=== PATIENT | female | born 1960 | race Two or more races ===

== ENCOUNTER 2024-11-26 18:04 | Inpatient (IN) | payer OTHER ==
[~2024-11-26] VITALS: Ht 167.6 cm; Wt 88.7 kg
--- NOTE | 2024-11-26 19:24 | ED.PDOC ---
HPI Comments HPI: 64y F who presents to the ED for chief complaint of palpitations. - pt states after waking up this afternoon at approx 1 PM , she felt heart palpitations but states they went away. 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 Patient states she checked her blood pressure which was normotensive - pt states she continued to have symptoms and drove to local urgent care for evaluation -pt states at [facility], she was referred to come to ED and drove herself to ED at - pt in the ED, noted BP of 84/57 and then 76/51 on repeat with all other vitals in normal range - pt otherwise denies any current shortness of breath, chest pain or any associated symptoms - pt in the ED, states she has history of HTN and HLD with pre DM but states she takes no medications and states she uses homeopathic treatments - pt was started on IV fluids and roomed - pt otherwise is alert and oriented x 4 and no noted changes in gait, vision, or speech are noted Past Medical history: pre DM, HTN, HLD, Past Surgical history: hysterectomy, fibroids Medications: none Allergies: nkda Social History: denies ETOH, denies tobacco use, denies drug use HPI: Poor Historian. REVIEW OF SYSTEMS: CONSTITUTIONAL: Denies acute: fever, diaphoresis, chills, HEAD: Denies acute: headache, photophobia Eyes: Denies acute: Double vision, vision loss, eye pain, eye discharge. EARS: Denies acute: tinnitus, hearing loss, ear discharge, ear pain, THROAT: Denies acute: sore throat, swelling, difficulty swallowing , pain with swallowing, change in voice. NECK: Denies acute: neck pain, neck swelling, stiff neck. HEART: Denies acute : chest pain LUNGS: Denies acute: SOB, wheezing, cough, hemoptysis ABDOMEN: Denies acute: abdominal pain, Nausea, Vomiting, diarrhea, melena , hematemesis, hematochezia SKIN: Denies acute: rash, redness, lesions, itchiness. EXTREMITIES: Denies acute: calf pain, numbness, tingling, weakness, denies pain in extremity. Denies acute: Low back pain. Neuro: Denies acute: focal neurological deficit, motor or sensory focal neurological deficit, tremors, seizure like activity, confusion, change in mental status, loss of bowel or bladder function, cauda equina like symptoms. : Denies acute: dysuria, hematuria, flank pain, increase in urinary frequency. PSYCH: Denies acute: hallucination, suicidal ideation, homicidal ideation. FEMALE: Denies acute: abnormal vaginal bleeding, foul odor, unusual discharge. PHYSICAL EXAM: General: ---mild to moderate-----acute distress, awake and alert. Head: normocephalic, atraumatic. Neck: supple, trachea is midline, no swelling. Throat: Normal phonation. Eyes:, no erythema, no purulent discharge, no proptosis, no icterus. Heart: regular tachycardia,, no significant murmur appreciated. Lungs: no apparent respiratory distress, Able to speak in full sentences. No wheezing, no rhonchi, no crackles. No stridors Clear to auscultation bilaterally. Abdomen: non tender to palpation, non distended, soft, no guarding, no rebound, + bowel sounds. Neuro: Awake, Alert, oriented to name, self, situation, follows commands GCS=15. Speech is normal. Skin: no petechia, no purpura, no cyanosis, non-pale, not jaundice. Lower extremities: --no - Pitting edema no deformity, no focal swelling, no calf TTP. Makes eye contact. moves all four extremities. Face: no apparent facial droop. Ambulating in the ED independently. No nuchal rigidity, Kernig's sign, Brudzinski's sign, no meningeal signs. ED COURSE: Chief Complaint: General Weakness Time Seen by MD: 19:54 Reviewed Notes: Nurses Notes, Medications, Allergies Allergies: Coded Allergies: NO KNOWN ALLERGIES (Unverified , 11/26/24) Information Source: Patient Mode of Arrival: Ambulatory Was a procedure done? Was a procedure done?: No CP Differential Dx Differential Diagnosis: N/A Differential Diagnosis: Other (Ddx include but not limitied to gastritis, musculoskeletal pain, radiculopathy, atypical chest pain, dissection, aneurysm, ACS, unstable angina, hiatal hernia, GERD, anxiety, costochondritis, PE, pneumothroax, neoplasm, cardiac ischemia, drug abuse, anemia. As far as generalized weakness, insert generalized weakness.) X-Ray, Labs, Meds, VS Vital Signs Date Time Temp Pulse Resp B/P (MAP) Pulse Ox O2 Delivery O2 Flow Rate FiO2 11/26/24 20:17 67 11/26/24 20:07 78 18 100 Room Air* 0 21 11/26/24 20:06 98.2 78 19 111/77 (88) 100 98.2 11/26/24 20:00 91 11/26/24 18:51 136 11/26/24 18:05 98.3 129 16 84/57 (66) 97 98.3 Lab Test 11/26/24 21:14 11/26/24 21:12 11/26/24 19:45 Range/Units Urine Color Light-yellow Yellow Urine Clarity Turbid H Clear Urine pH 7.5 5.0-9.0 Urine Specific [place] 1.017 1.001-1.035 Urine Protein Negative Negative Urine Ketones Negative Negative Urine Blood Negative Negative /uL Urine Nitrite Negative Negative Urine Bilirubin Negative Negative Urine Urobilinogen Normal Negative mg/dL Urine Leukocyte Esterase 1+ Negative /uL Urine RBC 1 0 - 4 /hpf Urine Microscopic WBC 4 0-5 /HPF Urine Squamous Epithelial Cells Few <5 /hpf Urine Amorphous Crystals Few None Seen /hpf Urine Bacteria Few H None Seen /hpf Urine Glucose Normal Normal mg/dL Urine Opiates Screen Neg NEGATIVE Urine Fentanyl Screen Neg NEGATIVE Urine Barbiturates Screen Neg NEGATIVE Urine Phencyclidine Screen Neg NEGATIVE Urine Amphetamines Screen Neg NEGATIVE Urine Benzodiazepines Screen Neg NEGATIVE Urine Cocaine Screen Neg NEGATIVE Urine Cannabinoids Screen Neg NEGATIVE Troponin I High Sensitivity 444 *H 227 *H </=34 ng/L White Blood Count 6.2 4.4-10.8 10^3/uL Red Blood Count 3.85 L 4.0-5.20 10^6/uL Hemoglobin 11.8 L 12.2-16.2 g/dL Hematocrit 36.4 36.0-46.0 % Mean Corpuscular Volume 94.7 80.0-100.0 fL Mean Corpuscular Hemoglobin 30.8 28.0-32.0 pg Mean Corpuscular Hemoglobin Concent 32.5 32.0-36.0 g/dL Red Cell Distribution Width 15.4 H 11.8-14.3 % Platelet Count 158 140-450 10^3/uL Mean Platelet Volume 10.2 6.9-10.8 fL Neutrophils (%) (Auto) 58.3 37.0-80.0 % Lymphocytes (%) (Auto) 28.8 10.0-50.0 % Monocytes (%) (Auto) 10.5 0.0-12.0 % Eosinophils (%) (Auto) 2.0 0.0-7.0 % Basophils (%) (Auto) 0.4 0.0-2.0 % Neutrophils # (Auto) 3.6 1.6-8.6 10 ^3/uL Lymphocytes # (Auto) 1.8 0.4-5.4 10 ^3/uL Monocytes # (Auto) 0.7 0-1.3 10 ^3/uL Eosinophils # (Auto) 0.1 0-0.8 10 ^3/uL Basophils # (Auto) 0 0-0.2 10 ^3/uL Nucleated Red Blood Cells 0.0 % Sodium Level 145 136-145 mmol/L Potassium Level 4.0 3.5-5.1 mmol/L Chloride Level 110 H 98-107 mmol/L Carbon Dioxide Level 29 20-31 mmol/L Anion Gap 6 5-15 Blood Urea Nitrogen 15 9-23 mg/dL Creatinine 0.79 0.550-1.02 mg/dL Glomerular Filtration Rate Calc 84 >90 mL/min BUN/Creatinine Ratio 19.0 10.0-20.0 Serum Glucose 106 74-106 mg/dL Calcium Level 9.2 8.7-10.4 mg/dL Magnesium Level 2.2 1.6-2.6 mg/dL Total Bilirubin 0.6 0.2-1.0 mg/dL Aspartate Amino Transferase (AST) 26 13-40 U/L Alanine Aminotransferase (ALT) 57 H 7-40 U/L Alkaline Phosphatase 58 46-116 U/L B-Type Natriuretic Peptide 98.75 0-100 pg/mL Total Protein 5.8 5.7-8.2 g/dL Albumin 3.5 3.2-4.8 g/dL Thyroid Stimulating Hormone (TSH) 0.97 0.55-4.78 uIU/mL Microbiology Date/Time Source Procedure Growth Status 11/26/24 21:14 Urine - Midstream Clean Catch Urine Culture - Preliminary Resulted [facility] [id number] [facility] [id number] Ph: [phone] DIAGNOSTIC IMAGING Diagnostic Imaging Report : [id number] Signed PATIENT: AMANDA BETANCOURTACCT: [id number] UNIT: [id number] : 1960 LOC: ER ROOM / BED: / AGE / SEX: 64 / F ADM STATUS: REG ER SERVICE 22 ORDERING PHYSICIAN: FLOYD GARCIA DO PROCEDURE(s): CXRP - CHEST PORTABLE REASON: weak, hypotensive, palpitation ORDER NUMBER(s): [id number], ACCESSION NUMBER(s): [id number] CHEST RADIOGRAPH Indication: weak, hypotensive, palpitation Technique: Single frontal view of the chest was obtained Comparison: None FINDINGS: Lines and Tubes: None Lungs: No focal consolidation. Pleura: No effusion. No pneumothorax. Cardiomediastinal contours: Unremarkable Bones: No acute osseous abnormality. IMPRESSION: 1. No acute cardiopulmonary disease. HS:Y ATED BY: JOHNY FONG Jr., DO DICTATED DATE/TIME: 11/26/242001 SIGNED BY: JOHNY FONG Jr., SIGNED DATE/TIME: 11/26/242001 CC: Time of 1ST Reevaluation: 22:10 (The case was discussed with the admitting team (HPI, physical exam, labs and diagnostic tests that were available at the time of disposition, ED course, treatment plan) on the phone. They agreed to admit the patient to their service and assume care of this patient from this point forward. --- Sarah. Still waiting to hear back from cardiology) Reevaluation 1ST: Improved Time of 2ND Reevaluation: 23:18 (The case was discussed with the cardiology on- call team (HPI, physical exam, labs and diagnostic tests that were available at the time of disposition, ED course, treatment plan) on the phone. They agreed with our management and said that they will follow in consult. Dr. Mei. No further recommendations.) Patient Education/Counseling: Diagnosis, Treatment Family Education/Counseling: No Family Present Comments Patient presented with the above HPI.--generalized weakness/palpitations/chest pain----workup was initiated. patient was found with the above mentioned diagnosis. the following medications were ordered: please refer to order lists of meds and tests obtained by myself Dr. Garcia. Patient ED course and VS have been stabilized. Patient has been reassessed in the ED and remained in a stable condition. Pertinent incidental findings were discussed with the patient and/or family. Patient/family voices understanding and is agreeable with plan. Patient has been observed in the ED adequate length of time to insure improvement/stability. Escalation of care considered: Consideration of escalation to observation or admission Patient met sepsis criteria being tachycardic on presentation. Sepsis protocol and weight based fluid resuscitation was administered. Cardiology was consulted. Empiric antibiotics given. Patient was ADMITTED to the medicine team for further evaluation and treatment of their presentation. All the reports of any imaging studies that were ordered by myself were reviewed by myself. Departure 1 Departure Time of Disposition: 20:09 Impression: Primary Impression: Hypotension Additional Impressions: Tachycardia Generalized weakness NSTEMI (non-ST elevated myocardial infarction) UTI (urinary tract infection) Disposition: ADMITTED INPATIENT Admit to: [facility] Condition: Guarded Discharged With: Self Critical Care Note Critical Care Time?: Yes (55 min-critical care time only) Heart Score Heart Score: Heart Score Response (Comments) Value History Slightly Suspicious 0 EKG Normal 0 Age >65 2 Risk Factors 1 or 2 risk factors 1 Troponin Normal limit 0 Total 3 I personally scribed for FLOYD GARCIA DO ([email or web address]) on 11/26/24 at 19:24. Electronically submitted by Maurice Chan ([employer]). I personally scribed for FLOYD GARCIA DO ([email or web address]) on 11/26/24 at 19:55. Electronically submitted by Maurice Chan ([employer]). I personally scribed for FLOYD GARCIA DO ([email or web address]) on 11/26/24 at 20:14. Electronically submitted by Maurice Chan ([employer]). FLOYD GARCIA DO Nov 26, 2024 19:24
--- NOTE | 2024-11-26 20:04 | DVH ---
CHEST RADIOGRAPH Indication: weak, hypotensive, palpitation Technique: Single frontal view of the chest was obtained Comparison: None FINDINGS: Lines and Tubes: None Lungs: No focal consolidation. Pleura: No effusion. No pneumothorax. Cardiomediastinal contours: Unremarkable Bones: No acute osseous abnormality. IMPRESSION: 1. No acute cardiopulmonary disease. HS:Y
[2024-11-26 20:07] VITALS: PULSE 78; RESP 18; O2SAT 100
[2024-11-26 20:12] LABS: Basophils # (auto) 0 10 ^3/uL (0-0.2); Basophils % (auto) 0.4 % (0.0-2.0); Eosinophils # (auto) 0.1 10 ^3/uL (0-0.8); Hematocrit 36.4 % (36.0-46.0); Hemoglobin 11.8 g/dL (12.2-16.2); Lymphocytes # (auto) 1.8 10 ^3/uL (0.4-5.4); Lymphocytes % (auto) 28.8 % (10.0-50.0); Mean Corpuscular Hemoglobin 30.8 pg (28.0-32.0); Mean Corpuscular Hgb Conc. 32.5 g/dL (32.0-36.0); Mean Corpuscular Volume 94.7 fL (80.0-100.0); Monocytes # (auto) 0.7 10 ^3/uL (0-1.3); Monocytes % (auto) 10.5 % (0.0-12.0); Neutrophils # (auto) 3.6 10 ^3/uL (1.6-8.6); Neutrophils % (auto) 58.3 % (37.0-80.0); Platelet Count (auto) 158 10^3/uL (140-450); Red Blood Cells 3.85 10^6/uL (4.0-5.20); Red Cell Distribution Width 15.4 % (11.8-14.3); White Blood Cell 6.2 10^3/uL (4.4-10.8)
[2024-11-26 20:23] LABS: Albumin 3.5 g/dL (3.2-4.8); Alkaline Phosphatase 58 U/L (46-116); Anion Gap 6 (5-15); Aspartate Aminotransferase 26 U/L (13-40); Blood Urea Nitrogen 15 mg/dL (9-23); Calcium 9.2 mg/dL (8.7-10.4); Carbon Dioxide 29 mmol/L (20-31); Glucose 106 mg/dL (74-106); Magnesium 2.2 mg/dL (1.6-2.6); Total Protein 5.8 g/dL (5.7-8.2)
[2024-11-26 20:24] LABS: Bilirubin, Total 0.6 mg/dL (0.2-1.0)
[2024-11-26 20:30] LABS: Alanine Aminotransferase 57 U/L (7-40); Chloride 110 mmol/L (98-107); Sodium 145 mmol/L (136-145)
[2024-11-26] MEDS: ASPirin-EC 325mg tab PO ONE (20:55)
[2024-11-26] MEDS: SODIUM CHLORIDE 0.9% 1,000 ML IV ONE (21:02)
[2024-11-26 21:36] LABS: Urine Amorphous Crystal FEW /hpf (None Seen); Urine Bacteria FEW /hpf (None Seen); Urine Blood Negative /uL (Negative); Urine Clarity Turbid (Clear); Urine Color Light-Yellow (Yellow); Urine Protein, UAD Negative (Negative); Urine Specific Gravity 1.017 (1.001-1.035); Urine Squamous Epithelial Cell FEW /hpf (<5); Urine Urobilinogen Normal (Negative); Urine WBC 4 /HPF (0-5); Urine pH 7.5 (5.0-9.0)
[2024-11-26] MEDS: SODIUM CHLORIDE 0.9% 1,000 ML IV SCH (22:15)
[2024-11-26] MEDS: cefTRIAXone 1GM/50ML D5W 50 ML IV ONE (22:15)
[2024-11-26] MEDS ORDERED: MORPHINE SULFATE INJ 2 MG/ml SYRG IV PRN ×2 (22:15)
[2024-11-26] MEDS ORDERED: ONDANSETRON HCL 4 MG/2 ML VIAL IV PRN (22:15)
[2024-11-26] MEDS ORDERED: NITROGLYCERIN 0.4 MG SL TAB SL PRN (22:15)
[2024-11-26] MEDS ORDERED: ACETAMINOPHEN 325 MG TAB PO PRN ×2 (22:15)
[2024-11-26] MEDS ORDERED: HYDROcodone-ACET 5/325MG TAB PO PRN (22:15)
[2024-11-26] MEDS: NOREPINEPHRINE 8 MG/250ML KIT 250 ML IV SCH (22:46)
--- NOTE | 2024-11-26 23:06 | DVHINCON2 ---
Date of service: Nov 26, 2024 Referring Physician Jamel Smith MD History of Present Illness A 64-year-old woman with past medical history of prediabetes, hypertension and hyperlipidemia who presents to the ED today with complaint of palpitations, dizziness, weakness and low BP. Pt reports after waking up this afternoon at approximately 1 PM , she felt heart palpitations which resolved. 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 Patient checked her blood pressure and it was normal. She was seen at and was referred to the ED and patient drove here. In the ED, BP was 84/57 and then 76/51 on repeat, with all other vitals in normal range. She otherwise denies shortness of breath, chest pain or any other associated symptoms. Patient was admitted for further care and pulmonary consultation is requested for evaluation and management due to these findings. Review of Systems: 14-point review of systems negative unless otherwise noted above. Past Medical History: Prediabetes, hypertension and hyperlipidemia Past Surgical History: Hysterectomy, fibroids Medications: Patient states she takes no medications and uses homeopathic treatments. Allergies: No known drug allergies. Family History: No family history of premature CAD. No family history of lung disorders. Social History: Nonsmoker. No alcohol or illicit drug use. Allergies: Coded Allergies: NO KNOWN ALLERGIES (Unverified , 11/26/24) Home Meds Active Scripts Carvedilol (Carvedilol) 3.125 Mg Tab, 1 TAB PO BID, #60 TAB 3 Refills Prov:ROZ SMITHP 11/29/24 Nifedipine (Nifedipine Er) 30 Mg Tab, 30 MG PO DAILY for 30 Days, #30 TAB Prov:ROZ SMITHP 11/29/24 Losartan Potassium (Losartan Potassium) 50 Mg Tab, 50 MG PO DAILY for 30 Days, #30 TAB Prov:ROZ SMITHP 11/29/24 Atorvastatin Calcium (ATORVASTATIN CALCIUM) 20 Mg Tab, 10 MG PO HS for 30 Days, #15 TAB Prov:ROZ SMITHP 11/29/24 Aspirin (Aspirin Low Dose) 81 Mg Tab, 81 MG PO DAILY for 30 Days, #30 TAB Prov:ROZ SMITHP 11/29/24 Current Medications Current Medications Medications (Trade) Dose Ordered Sig/Terrance Route PRN Reason Start Time Stop Time Status Last Admin Heparin Sodium/ Dextrose 250 ml @ 9.936 mls/ hr Q24H IV 11/26/24 22:15 UNV Sodium Chloride 1,000 ml @ 120 mls/hr Q8H20M IV 11/26/24 22:15 Acetaminophen (Tylenol Tablet) 325 mg Q4HP PRN PO MILD PAIN (1-3 PAIN SCALE) 11/26/24 22:15 11/26/24 22:36 DC Acetaminophen/ Hydrocodone Bitart ([place] 5/325MG Tab) 1 tab Q4HP PRN PO MODERATE PAIN (4-6 PAIN SCALE) 11/26/24 22:15 Ondansetron HCl (Zofran) 4 mg Q4HP PRN IV NAUSEA / VOMITING 11/26/24 22:15 Acetaminophen (Tylenol Tablet) 650 mg Q6HP PRN PO PAIN SCALE 1-3 OR TEMP>100.4 11/26/24 22:15 Morphine Sulfate 2 mg Q4HPRN PRN IV SEVERE PAIN (7-10 PAIN SCALE) 11/26/24 22:15 Nitroglycerin (Ntrostat Sublingual) 0.4 mg Q5MINP PRN SL FOR CHEST PAIN 11/26/24 22:15 Morphine Sulfate 2 mg Q30M PRN IV FOR CHEST PAIN 11/26/24 22:15 Norepinephrine Bitartrate 250 ml @ 3.75 mls/hr Q24H IV 11/26/24 22:15 Vital Signs Vital Signs Date Time Temp Pulse Resp B/P (MAP) Pulse Ox O2 Delivery O2 Flow Rate FiO2 11/26/24 22:45 98.2 82 18 112/69 (83) 100 98.2 11/26/24 20:07 Room Air* 0 21 Physical Exam Gen.: Patient lying in bed in no apparent distress. Breathing on room air. Head: Normocephalic, atraumatic. Eyes: EOMI/PERRLA. Ears: Normal hearing. Normal anatomy. Neck/trachea: Trachea midline, supple. Nose: Normal external anatomy. Mouth: Moist mucous membranes. Chest: Decreased air entry bilaterally. No wheezing or rhonchi. Cardiovascular: Positive S1, positive S2. Regular rate and rhythm. Abdomen: Positive bowel sounds in all 4 quadrants. Soft, non-tender, non- distended. : Deferred. Rectal: Deferred. Skin: Warm, dry. Intact. Extremities: 2+ radial pulses bilaterally. No lower extremity edema. Neuro: Awake, alert, oriented x3. No gross motor or sensory deficits. Cranial nerves II through XII intact. Gait not assessed. Labs/Diagnostic Data Labs Test 11/26/24 22:36 11/26/24 21:14 11/26/24 19:45 Range/Units Urine Color Light-yellow Yellow Urine Clarity Turbid H Clear Urine pH 7.5 5.0-9.0 Urine Specific [place] 1.017 1.001-1.035 Urine Protein Negative Negative Urine Ketones Negative Negative Urine Blood Negative Negative /uL Urine Nitrite Negative Negative Urine Bilirubin Negative Negative Urine Urobilinogen Normal Negative mg/dL Urine Leukocyte Esterase 1+ Negative /uL Urine RBC 1 0 - 4 /hpf Urine Microscopic WBC 4 0-5 /HPF Urine Squamous Epithelial Cells Few <5 /hpf Urine Amorphous Crystals Few None Seen /hpf Urine Bacteria Few H None Seen /hpf Urine Glucose Normal Normal mg/dL Eosinophils (%) (Auto) 2.0 0.0-7.0 % Eosinophils # (Auto) 0.1 0-0.8 10 ^3/uL Basophils # (Auto) 0 0-0.2 10 ^3/uL Nucleated Red Blood Cells 0.0 % Sodium Level 145 136-145 mmol/L Potassium Level 4.0 3.5-5.1 mmol/L Chloride Level 110 H 98-107 mmol/L Carbon Dioxide Level 29 20-31 mmol/L Anion Gap 6 5-15 Blood Urea Nitrogen 15 9-23 mg/dL Creatinine 0.79 0.550-1.02 mg/dL Glomerular Filtration Rate Calc 84 >90 mL/min BUN/Creatinine Ratio 19.0 10.0-20.0 Serum Glucose 106 74-106 mg/dL Calcium Level 9.2 8.7-10.4 mg/dL Magnesium Level 2.2 1.6-2.6 mg/dL Total Bilirubin 0.6 0.2-1.0 mg/dL Aspartate Amino Transferase (AST) 26 13-40 U/L Alanine Aminotransferase (ALT) 57 H 7-40 U/L Alkaline Phosphatase 58 46-116 U/L B-Type Natriuretic Peptide 98.75 0-100 pg/mL Total Protein 5.8 5.7-8.2 g/dL Albumin 3.5 3.2-4.8 g/dL Thyroid Stimulating Hormone (TSH) 0.97 0.55-4.78 uIU/mL Assessment Impression: Hypotension Tachycardia Generalized weakness Non-ST elevation myocardial infarction Urinary tract infection Overweight, BMI 29.5 Plan: Supplemental oxygen PRN Titrate to keep O2 sats above 92%. . Chest x-ray reviewed, showed no e/o acute disease. Follow up Cardiology recommendations Antibiotics Monitor blood pressure IV fluids with NS at 120 ml/hr. Monitor renal function. Monitor electrolytes. Supplement as necessary. Monitor ins and outs. Diet and lifestyle modifications for weight reduction DVT prophylaxis. Prognosis: Poor given patient's multiple co-morbidities. Rest of plan per hospitalist and other consultants. Thank you, Dr. Smith, for allowing me to participate in this patient's care. Further recommendations will depend on the patient's clinical course. Please do not hesitate to contact me if you have any questions or concerns. This medical document was created using an electronic medical record system with [employer] computerized dictation system. Although these documentations are being carefully reviewed, there may still be some phonetic and typographical changes. The errors are purely typographical, due to imperfection on the software program, and do not reflect any compromise in the patient's medical care. Plan discussed with: Patient, Other (RN/Dr. Smith) RAHEEL RIOJAS MD Nov 26, 2024 23:06
[2024-11-26 23:53] LABS: Basophils # (auto) 0 10 ^3/uL (0-0.2); Basophils % (auto) 0.3 % (0.0-2.0); Eosinophils # (auto) 0.1 10 ^3/uL (0-0.8); Hematocrit 34.4 % (36.0-46.0); Hemoglobin 11.5 g/dL (12.2-16.2); Lymphocytes # (auto) 1.8 10 ^3/uL (0.4-5.4); Lymphocytes % (auto) 29.6 % (10.0-50.0); Mean Corpuscular Hemoglobin 31.7 pg (28.0-32.0); Mean Corpuscular Hgb Conc. 33.5 g/dL (32.0-36.0); Mean Corpuscular Volume 94.7 fL (80.0-100.0); Monocytes # (auto) 0.5 10 ^3/uL (0-1.3); Monocytes % (auto) 8.8 % (0.0-12.0); Neutrophils # (auto) 3.7 10 ^3/uL (1.6-8.6); Neutrophils % (auto) 59.3 % (37.0-80.0); Nucleated Red Blood Cells % 0.1 %; Platelet Count (auto) 148 10^3/uL (140-450); Red Blood Cells 3.63 10^6/uL (4.0-5.20); Red Cell Distribution Width 15.1 % (11.8-14.3); White Blood Cell 6.2 10^3/uL (4.4-10.8)
[2024-11-27 00:08] LABS: INR 1.05 (0.9-1.15); Partial Thromboplastin Time 27.4 SEC (24.5-34.5); Prothrombin Time 11.1 sec (9.3-11.8)
[2024-11-27] MEDS: HEPARIN SODIUM (PORCINE) 5000 UNITS/ML 1ML VIAL IV ONE (00:22)
[2024-11-27] MEDS: HEPARIN DRIP/D5W 100UNITS/ML 250 ML IV SCH (00:31)
--- NOTE | 2024-11-27 04:52 | ECG ---
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
[2024-11-27 05:04] LABS: Basophils # (auto) 0 10 ^3/uL (0-0.2); Basophils % (auto) 0.2 % (0.0-2.0); Eosinophils # (auto) 0.1 10 ^3/uL (0-0.8); Eosinophils % (auto) 2.4 % (0.0-7.0); Hematocrit 36.3 % (36.0-46.0); Lymphocytes # (auto) 2.2 10 ^3/uL (0.4-5.4); Lymphocytes % (auto) 39.2 % (10.0-50.0); Mean Corpuscular Hemoglobin 31.2 pg (28.0-32.0); Mean Corpuscular Volume 94.7 fL (80.0-100.0); Monocytes # (auto) 0.5 10 ^3/uL (0-1.3); Monocytes % (auto) 9.2 % (0.0-12.0); Neutrophils # (auto) 2.8 10 ^3/uL (1.6-8.6); Nucleated Red Blood Cells % 0.2 %; Platelet Count (auto) 152 10^3/uL (140-450); Red Blood Cells 3.83 10^6/uL (4.0-5.20); Red Cell Distribution Width 15.4 % (11.8-14.3); White Blood Cell 5.6 10^3/uL (4.4-10.8)
[2024-11-27 05:51] LABS: Albumin 3.7 g/dL (3.2-4.8); Alkaline Phosphatase 55 U/L (46-116); Anion Gap 8 (5-15); Aspartate Aminotransferase 25 U/L (13-40); BUN/Creatinine Ratio 17.6 (10.0-20.0); Bilirubin, Total 0.6 mg/dL (0.2-1.0); Blood Urea Nitrogen 13 mg/dL (9-23); Calcium 8.9 mg/dL (8.7-10.4); Carbon Dioxide 25 mmol/L (20-31); Glucose 103 mg/dL (74-106); Potassium 3.9 mmol/L (3.5-5.1); Sodium 143 mmol/L (136-145); Total Protein 6.2 g/dL (5.7-8.2)
[2024-11-27 06:06] LABS: Alanine Aminotransferase 51 U/L (7-40); Chloride 110 mmol/L (98-107)
[2024-11-27 07:31] LABS: INR 1.03 (0.9-1.15); Prothrombin Time 10.9 sec (9.3-11.8)
[2024-11-27 09:29] VITALS: PULSE 63; RESP 14; O2SAT 99
[2024-11-27 11:56] LABS: Triglycerides 113 mg/dL (< 150)
[2024-11-27 11:58] LABS: Cholesterol 184 mg/dL (< 200)
[2024-11-27 11:59] LABS: HDL Cholesterol 36 mg/dL (40-59); LDL Cholesterol 124 mg/dL (< 100)
[2024-11-27 12:17] LABS: Amphetamine Screen, Urine Neg (NEGATIVE); Barbiturate Scree,Urine Neg (NEGATIVE); Benzodiazephine Screen, Urine Neg (NEGATIVE); Cannabinoid Screen, Urine Neg (NEGATIVE); Cocaine Screen, Urine Neg (NEGATIVE); Opiate Scree,Urine Neg (NEGATIVE); Phencyclidine Screen, Urine Neg (NEGATIVE)
--- NOTE | 2024-11-27 13:05 | DVHINCON2 ---
JAYDE HILARIO [facility] 11/27/24 1305: Date Seen: Nov 27, 2024 Referring Physician EZE العلي Reason for Consultation Elevated troponin History of Present Illness This is a 64-year-old female patient who presents to the emergency room with chief complaint of generalized weakness, palpitations, left arm numbness, and shortness of breath for three days prior to emergency room arrival. The patient states that she was initially seen at [facility] and was told to come to the emergency room. Upon emergency room arrival, troponin levels were noted to be elevated and so cardiology has been consulted for further evaluation. Initial twelve lead electrocardiogram reveals an underlying atrial tachycardia without any significant ST segment changes. Initial troponin level of 227ng/L with peak level at 1027ng/L. The patient denies any cardiac symptoms at time of assessment. Significant past medical history includes hypertension, dyslipidemia, prediabetes, and obesity. Past Medical History Past medical history reviewed. No other significant than mentioned above. Past Surgical History Hysterectomy Family History Family history reviewed. Social History Denies the use of tobacco, alcohol or illicit drugs. Allergies: Coded Allergies: NO KNOWN ALLERGIES (Unverified , 11/26/24) Home Meds The patient denies taking any medications at home, reports trying homeopathic remedies Current Medications Current Medications Medications (Trade) Dose Ordered Sig/Terrance Route PRN Reason Start Time Stop Time Status Last Admin Heparin Sodium/ Dextrose 250 ml @ 8 mls/hr Q24H IV 11/26/24 22:15 11/27/24 00:31 Sodium Chloride 1,000 ml @ 120 mls/hr Q8H20M IV 11/26/24 22:15 11/27/24 06:37 Acetaminophen (Tylenol Tablet) 325 mg Q4HP PRN PO MILD PAIN (1-3 PAIN SCALE) 11/26/24 22:15 11/26/24 22:36 DC Acetaminophen/ Hydrocodone Bitart ([place] 5/325MG Tab) 1 tab Q4HP PRN PO MODERATE PAIN (4-6 PAIN SCALE) 11/26/24 22:15 Ondansetron HCl (Zofran) 4 mg Q4HP PRN IV NAUSEA / VOMITING 11/26/24 22:15 Acetaminophen (Tylenol Tablet) 650 mg Q6HP PRN PO PAIN SCALE 1-3 OR TEMP>100.4 11/26/24 22:15 Morphine Sulfate 2 mg Q4HPRN PRN IV SEVERE PAIN (7-10 PAIN SCALE) 11/26/24 22:15 Nitroglycerin (Ntrostat Sublingual) 0.4 mg Q5MINP PRN SL FOR CHEST PAIN 11/26/24 22:15 Morphine Sulfate 2 mg Q30M PRN IV FOR CHEST PAIN 11/26/24 22:15 Norepinephrine Bitartrate 250 ml @ 3.75 mls/hr Q24H IV 11/26/24 22:15 Review of Systems Constitutional: Generalized weakness Ears, Nose, & Throat: No symptom reported Eyes: No symptom reported Neurological: Left arm numbness Pulmonary/Respiratory: Shortness of breath Cardiovascular: Palpitations Gastrointestinal: No symptom reported Genitourinary: No symptom reported Musculoskeletal: No symptom reported Skin: No symptom reported Psychiatric: No symptom reported Endocrine: No symptom reported Hematologic/Lymphatic: No symptom reported Vital Signs Vital Signs Date Time Temp Pulse Resp B/P (MAP) Pulse Ox O2 Delivery O2 Flow Rate FiO2 11/27/24 11:30 67 13 144/83 (103) 97 11/27/24 09:30 98.1 98.1 11/27/24 09:29 Room Air* 0 21 Physical Exam General Appearance: Cooperative. Well-developed. Well-nourished. No acute distress. Pulmonary/Respiratory: Clear, bilateral breaths sounds. Cardiovascular/Chest: Regular rate and rhythm. Peripheral Pulses: 2+ Radial (R). 2+ Radial (L). 2+ Pedal (R). 2+ Pedal (L) Abdominal Exam: Normal bowel sounds. Ankle Exam: Negative ankle edema Lower extremities: Negative lower extremity edema Neuro/Mental Status: A/OX4, coherent. Thoughts/Psych: Normal thought pattern. Appropriate mood and affect. Good judgment and insight. Appearance: No acute distress. Skin Exam: Normal inspection. Normal color. Warm and dry. Labs/Diagnostic Data Labs Test 11/27/24 10:14 11/27/24 08:35 11/27/24 06:55 11/27/24 04:45 Range/Units Hemoglobin A1c 5.8 H <5.7 % A1C Troponin I High Sensitivity 783 *H </=34 ng/L Triglycerides Level 113 < 150 mg/dL Cholesterol Level 184 < 200 mg/dL LDL Cholesterol 124 H < 100 mg/dL HDL Cholesterol 36 L 40-59 mg/dL Prothrombin Time 10.9 9.3-11.8 sec Prothrombin Time INR 1.03 0.9-1.15 Activated Partial Thromboplast Time 51.0 H 24.5-34.5 SEC White Blood Count 5.6 4.4-10.8 10^3/uL Red Blood Count 3.83 L 4.0-5.20 10^6/uL Hemoglobin 12.0 L 12.2-16.2 g/dL Hematocrit 36.3 36.0-46.0 % Mean Corpuscular Volume 94.7 80.0-100.0 fL Mean Corpuscular Hemoglobin 31.2 28.0-32.0 pg Mean Corpuscular Hemoglobin Concent 33.0 32.0-36.0 g/dL Red Cell Distribution Width 15.4 H 11.8-14.3 % Platelet Count 152 140-450 10^3/uL Mean Platelet Volume 10.2 6.9-10.8 fL Neutrophils (%) (Auto) 49.0 37.0-80.0 % Lymphocytes (%) (Auto) 39.2 10.0-50.0 % Monocytes (%) (Auto) 9.2 0.0-12.0 % Eosinophils (%) (Auto) 2.4 0.0-7.0 % Basophils (%) (Auto) 0.2 0.0-2.0 % Neutrophils # (Auto) 2.8 1.6-8.6 10 ^3/uL Lymphocytes # (Auto) 2.2 0.4-5.4 10 ^3/uL Monocytes # (Auto) 0.5 0-1.3 10 ^3/uL Eosinophils # (Auto) 0.1 0-0.8 10 ^3/uL Basophils # (Auto) 0 0-0.2 10 ^3/uL Nucleated Red Blood Cells 0.2 % Sodium Level 143 136-145 mmol/L Potassium Level 3.9 3.5-5.1 mmol/L Chloride Level 110 H 98-107 mmol/L Carbon Dioxide Level 25 20-31 mmol/L Anion Gap 8 5-15 Blood Urea Nitrogen 13 9-23 mg/dL Creatinine 0.74 0.550-1.02 mg/dL Glomerular Filtration Rate Calc 91 >90 mL/min BUN/Creatinine Ratio 17.6 10.0-20.0 Serum Glucose 103 74-106 mg/dL Calcium Level 8.9 8.7-10.4 mg/dL Total Bilirubin 0.6 0.2-1.0 mg/dL Aspartate Amino Transferase (AST) 25 13-40 U/L Alanine Aminotransferase (ALT) 51 H 7-40 U/L Alkaline Phosphatase 55 46-116 U/L Total Protein 6.2 5.7-8.2 g/dL Albumin 3.7 3.2-4.8 g/dL Test 11/26/24 22:36 11/26/24 21:14 11/26/24 19:45 Range/Units Lactic Acid Level 1.3 0.4-2.0 mmol/L Urine Color Light-yellow Yellow Urine Clarity Turbid H Clear Urine pH 7.5 5.0-9.0 Urine Specific [place] 1.017 1.001-1.035 Urine Protein Negative Negative Urine Ketones Negative Negative Urine Blood Negative Negative /uL Urine Nitrite Negative Negative Urine Bilirubin Negative Negative Urine Urobilinogen Normal Negative mg/dL Urine Leukocyte Esterase 1+ Negative /uL Urine RBC 1 0 - 4 /hpf Urine Microscopic WBC 4 0-5 /HPF Urine Squamous Epithelial Cells Few <5 /hpf Urine Amorphous Crystals Few None Seen /hpf Urine Bacteria Few H None Seen /hpf Urine Glucose Normal Normal mg/dL Urine Opiates Screen Neg NEGATIVE Urine Fentanyl Screen Neg NEGATIVE Urine Barbiturates Screen Neg NEGATIVE Urine Phencyclidine Screen Neg NEGATIVE Urine Amphetamines Screen Neg NEGATIVE Urine Benzodiazepines Screen Neg NEGATIVE Urine Cocaine Screen Neg NEGATIVE Urine Cannabinoids Screen Neg NEGATIVE Magnesium Level 2.2 1.6-2.6 mg/dL B-Type Natriuretic Peptide 98.75 0-100 pg/mL Thyroid Stimulating Hormone (TSH) 0.97 0.55-4.78 uIU/mL Assessment NSTEMI Atrial tachycardia Hypertension Dyslipidemia Rule out CVA Urinary tract infection Obesity Plan/Recommendation We will continue with following plan/recommendations (Dr. Tinajero): Case discussed with . Transthoracic echocardiogram reveals EF 65%. The patient presents to the emergency room with generalized weakness, palpitations, shortness of breath, and left arm paresthesia was found to have elevated troponin levels. She was initiated on a heparin drip while in the emergency room. Given new onset left arm paresthesia, a head CT was ordered and reveals no acute intracranial abnormality, with a right cerebellar encephalomalacia. Consider further imaging such as brain MRI. At the time of assessment, the patient denies any cardiac symptoms. No significant ST segment changes seen on twelve lead electrocardiogram. NSTEMI type I vs II. Further recommendations per clinical course and progression. Thank you for allowing us to care for this patient. Please call with any questions or concerns. Critical care time spent: 43 minutes This medical document was created using an electronic medical record system with voice recognition software and computerized dictation system. Although this document has been carefully reviewed, there might still be some phonetic and typographical errors. Occasional wrong-word or ``sound-alike substitutions may have occurred due to the inherent limitations of voice recognition software. These areas are purely typographical due to imperfections of the software programs and do not reflect any compromise in the patient's medical care. Please read the chart carefully and recognize, using context, where these substitutions have occurred. 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
[2024-11-27 14:41] LABS: INR 1.02 (0.9-1.15); Partial Thromboplastin Time 54.4 SEC (24.5-34.5); Prothrombin Time 10.8 sec (9.3-11.8)
--- NOTE | 2024-11-27 14:44 | DVH ---
EXAM: CT HEAD WITHOUT CONTRAST INDICATION: LEFT ARM WEAKNESS TECHNIQUE: CT of the head without intravenous contrast. Radiation Dose : 1. Head: CT Dose: CTDI volume is 53.7 mGy. Dose-length product is 755.91 mGy*cm The dose indicators for CT are the volume Computed Tomography (CT) Dose Index (CTDIvol) and the Dose Length Product (DLP), and are measured in units of mGy and mGy-cm, respectively. These indicators are not patient dose, but values generated from the CT scanner acquisition factors. The report includes radiation exposure data for exposures received during this examination. COMPARISON: None FINDINGS: There is no evidence of acute intracranial hemorrhage, extra-axial collection, mass effect, midline s hift, herniation or hydrocephalus. Right cerebellar encephalomalacia. The ventricles, sulci and cisterns are age appropriate. The salmon-white differentiation is intact. Patchy periventricular and subcortical white matter hypoattenuation is nonspecific but may be related to small vessel ischemic disease. The visualized paranasal sinuses and mastoid air cells are clear. The surrounding soft tissues and osseous structures are unremarkable. IMPRESSION: No acute intracranial abnormality. Right cerebellar encephalomalacia. Radiation optimization: All CT scans at this facility use at least one of these dose optimization milla hniques: automated exposure control mA and/or kV adjustment per patient size (includes targeted exam s where dose is matched to clinical indication) or iterative reconstruction.
--- NOTE | 2024-11-27 15:59 | DVHSR ---
APPROVED REPORT EXAM: Two-dimensional and M-mode echocardiogram with Doppler and color Doppler. Blood Pressure: 154/90 mmHg INDICATION chf RISK FACTORS Height: 5'6, Weight: 182 DIMENSIONS LVDd4.4 (3.8-5.7cm)LA (2D)4.0 (1.9-4.0cm)Aortic Root3.5 (2.0-3.7cm) LVDs3.0 (2.5-4.0cm)LA (MM) (1.9-4.0cm)Aortic Cusp Exc1.6 (1.5-2.0cm) EF (%) 60.0 (55-70%)Rt. Atrium3.4 (1.9-4.0cm)Asc. Aorta3.3 cm IVSd0.6 (0.7-1.1cm)RV (D) (1.8-2.4cm) PWd0.9 (0.7-1.1cm) Mitral Valve MitralMitral Stenosis E wave0.65m/sMV Mean GR.mmHg A wave0.57m/sMV Peak GR.74mmHg E/A ratio1.12D MVAcm2 DECEL [id number] 1/2 Timems Aortic Valve Aortic ValveAortic Stenosis V10.95m/Gasper Mean GR.5mmHg V21.53m/Gasper Peak GR.9mmHg LVOT Diameter2.2 (1.8-2.4cm)Doppler AVA2.36cm2 Pulmonic Valve V20.93m/s Tricuspid Valve [id number] Conclusion lvef 65% RV, normal function left atirum enlarged mild no severe valve abnormalities noted
[2024-11-27 20:30] LABS: INR 1.01 (0.9-1.15); Prothrombin Time 10.7 sec (9.3-11.8)
--- NOTE | 2024-11-27 20:31 | DVHHP2 ---
History of Present Illness History of Present Illness 64-year-old female with no known cardiac history presents to emergency room for palpitations with left arm numbness and tingling and shortness of breath. Patient denies any nausea vomiting or chills Review of Systems ENT: No: Ear pain, Ear discharge, Nose pain, Nose discharge, Nose congestion, Mouth pain, Mouth swelling, Throat pain, Throat swelling, Other Cardiovascular: No: Chest Pain, Palpitations, Orthopnea, Paroxysmal Noc. Dyspnea, Edema, Lt Headedness, Other Skin: No: Rash, Lesions, Jaundice, Bruising, Other Allergies: Coded Allergies: NO KNOWN ALLERGIES (Unverified , 11/26/24) Medications Current Medications Medications Dose Ordered Sig/Terrance Route Start Time Stop Time Status Last Admin Dose Admin Heparin Sodium/ Dextrose 250 ml @ 8 mls/hr Q24H IV 11/26/24 22:15 11/27/24 00:31 8 MLS/HR Sodium Chloride 1,000 ml @ 120 mls/hr Q8H20M IV 11/26/24 22:15 11/27/24 14:55 120 MLS/HR Acetaminophen/ Hydrocodone Bitart 1 tab Q4HP PRN PO 11/26/24 22:15 Ondansetron HCl 4 mg Q4HP PRN IV 11/26/24 22:15 Acetaminophen 650 mg Q6HP PRN PO 11/26/24 22:15 Morphine Sulfate 2 mg Q4HPRN PRN IV 11/26/24 22:15 Nitroglycerin 0.4 mg Q5MINP PRN SL 11/26/24 22:15 Morphine Sulfate 2 mg Q30M PRN IV 11/26/24 22:15 Exam Vital Signs Vital Signs Date Time Temp Pulse Resp B/P (MAP) Pulse Ox O2 Delivery O2 Flow Rate FiO2 11/27/24 19:30 Room Air* 0 21 11/27/24 19:30 98.2 78 20 169/99 (122) 96 98.2 General Appearance: Alert, Oriented X3, Cooperative, No acute distress Respiratory: Clear to auscultation, Normal air movement Cardiovascular: Regular rate, Normal S1, Normal S2, No murmurs Abdominal: Normal bowel sounds, Soft, No tenderness, No hepatospenomegaly Extremities: No clubbing Labs/Xrays Labs Test 11/27/24 19:57 11/27/24 10:14 11/27/24 08:35 11/27/24 04:45 Range/Units Hemoglobin A1c 5.8 H <5.7 % A1C Troponin I High Sensitivity 783 *H </=34 ng/L Triglycerides Level 113 < 150 mg/dL Cholesterol Level 184 < 200 mg/dL LDL Cholesterol 124 H < 100 mg/dL HDL Cholesterol 36 L 40-59 mg/dL White Blood Count 5.6 4.4-10.8 10^3/uL Red Blood Count 3.83 L 4.0-5.20 10^6/uL Hemoglobin 12.0 L 12.2-16.2 g/dL Hematocrit 36.3 36.0-46.0 % Mean Corpuscular Volume 94.7 80.0-100.0 fL Mean Corpuscular Hemoglobin 31.2 28.0-32.0 pg Mean Corpuscular Hemoglobin Concent 33.0 32.0-36.0 g/dL Red Cell Distribution Width 15.4 H 11.8-14.3 % Platelet Count 152 140-450 10^3/uL Mean Platelet Volume 10.2 6.9-10.8 fL Neutrophils (%) (Auto) 49.0 37.0-80.0 % Lymphocytes (%) (Auto) 39.2 10.0-50.0 % Monocytes (%) (Auto) 9.2 0.0-12.0 % Eosinophils (%) (Auto) 2.4 0.0-7.0 % Basophils (%) (Auto) 0.2 0.0-2.0 % Neutrophils # (Auto) 2.8 1.6-8.6 10 ^3/uL Lymphocytes # (Auto) 2.2 0.4-5.4 10 ^3/uL Monocytes # (Auto) 0.5 0-1.3 10 ^3/uL Eosinophils # (Auto) 0.1 0-0.8 10 ^3/uL Basophils # (Auto) 0 0-0.2 10 ^3/uL Nucleated Red Blood Cells 0.2 % Sodium Level 143 136-145 mmol/L Potassium Level 3.9 3.5-5.1 mmol/L Chloride Level 110 H 98-107 mmol/L Carbon Dioxide Level 25 20-31 mmol/L Anion Gap 8 5-15 Blood Urea Nitrogen 13 9-23 mg/dL Creatinine 0.74 0.550-1.02 mg/dL Glomerular Filtration Rate Calc 91 >90 mL/min BUN/Creatinine Ratio 17.6 10.0-20.0 Serum Glucose 103 74-106 mg/dL Calcium Level 8.9 8.7-10.4 mg/dL Total Bilirubin 0.6 0.2-1.0 mg/dL Aspartate Amino Transferase (AST) 25 13-40 U/L Alanine Aminotransferase (ALT) 51 H 7-40 U/L Alkaline Phosphatase 55 46-116 U/L Total Protein 6.2 5.7-8.2 g/dL Albumin 3.7 3.2-4.8 g/dL Test 11/26/24 22:36 11/26/24 21:14 11/26/24 19:45 Range/Units Lactic Acid Level 1.3 0.4-2.0 mmol/L Urine Color Light-yellow Yellow Urine Clarity Turbid H Clear Urine pH 7.5 5.0-9.0 Urine Specific [place] 1.017 1.001-1.035 Urine Protein Negative Negative Urine Ketones Negative Negative Urine Blood Negative Negative /uL Urine Nitrite Negative Negative Urine Bilirubin Negative Negative Urine Urobilinogen Normal Negative mg/dL Urine Leukocyte Esterase 1+ Negative /uL Urine RBC 1 0 - 4 /hpf Urine Microscopic WBC 4 0-5 /HPF Urine Squamous Epithelial Cells Few <5 /hpf Urine Amorphous Crystals Few None Seen /hpf Urine Bacteria Few H None Seen /hpf Urine Glucose Normal Normal mg/dL Urine Opiates Screen Neg NEGATIVE Urine Fentanyl Screen Neg NEGATIVE Urine Barbiturates Screen Neg NEGATIVE Urine Phencyclidine Screen Neg NEGATIVE Urine Amphetamines Screen Neg NEGATIVE Urine Benzodiazepines Screen Neg NEGATIVE Urine Cocaine Screen Neg NEGATIVE Urine Cannabinoids Screen Neg NEGATIVE Magnesium Level 2.2 1.6-2.6 mg/dL B-Type Natriuretic Peptide 98.75 0-100 pg/mL Thyroid Stimulating Hormone (TSH) 0.97 0.55-4.78 uIU/mL Assessment/Plan Assessment/Plan 1. Non-STEMI Cardiac consult, obtain echo, trend troponin, monitor EKG 2. Hypertension Continue home meds 3. Dyslipidemia Start atorvastatin 10 mg 4. Acute cystitis without hematuria IV Rocephin Obesity Monitor Plan discussed with: Patient My Orders Orders - ROZ SMITH Procedure Category Date Status Time Urine Bacterial ARLETTE 11/27/24 In Process Culture 07:13 * Cardiology Consult CONS 11/27/24 Transmitted 11:16 Echo 2d Mode Cardiac US 11/27/24 Resulted DOP 11:29 Aspirin Tablet PHA 11/28/24 Transmitted 10:00 Atorvastatin (Lipitor) PHA 11/27/24 Transmitted 22:00 Date of Service: Nov 26, 2024 Billing Provider: REG TRIANA MD Common Visit Codes: [id number] INP/OBS CARE (MOD) ROZ SMITH BIN CLEANER Nov 27, 2024 20:31
--- NOTE | 2024-11-27 20:33 | DVHPN2 ---
Progress Note Date Seen: Nov 27, 2024 Medical Necessity Reason Pt with a Central, PICC or Fol: No Subjective Review of Systems: CVS:Normal, RESPIRATORY:Normal, GI:Normal, :Normal Objective vital signs Vital Sign Date Time Temp Pulse Resp B/P (MAP) Pulse Ox O2 Delivery O2 Flow Rate FiO2 11/27/24 19:30 Room Air* 0 21 11/27/24 19:30 98.2 78 20 169/99 (122) 96 98.2 Total Intake and Output 11/26/24 11/26/24 11/27/24 15:00 23:00 07:00 Intake Total 1000 ml 1058 ml Balance 1000 ml 1058 ml medications Current Medications Medications Dose Ordered Sig/Terrance Route Start Time Stop Time Status Last Admin Dose Admin Heparin Sodium/ Dextrose 250 ml @ 8 mls/hr Q24H IV 11/26/24 22:15 11/27/24 00:31 8 MLS/HR Sodium Chloride 1,000 ml @ 120 mls/hr Q8H20M IV 11/26/24 22:15 11/27/24 14:55 120 MLS/HR Acetaminophen/ Hydrocodone Bitart 1 tab Q4HP PRN PO 11/26/24 22:15 Ondansetron HCl 4 mg Q4HP PRN IV 11/26/24 22:15 Acetaminophen 650 mg Q6HP PRN PO 11/26/24 22:15 Morphine Sulfate 2 mg Q4HPRN PRN IV 11/26/24 22:15 Nitroglycerin 0.4 mg Q5MINP PRN SL 11/26/24 22:15 Morphine Sulfate 2 mg Q30M PRN IV 11/26/24 22:15 Aspirin 81 mg DAILY PO 11/28/24 10:00 UNV Atorvastatin Calcium 10 mg HS PO 11/27/24 22:00 UNV Losartan Potassium 50 mg DAILY PO 11/28/24 10:00 UNV Nifedipine 30 mg DAILY PO 11/28/24 10:00 UNV Examination: GENERAL:Normal, LUNGS:Normal, CVS:Normal, ABDOMEN:Normal, SKIN:Normal, NEURO:Normal laboratory and microbiology Laboratory Tests 11/27/24 04:45 Test 11/27/24 04:45 Range/Units Serum Glucose 103 74-106 mg/dL Labs and/or images reviewed: Labs reviewed by me, Image(s) reviewed by me Problem List/Assessment/Plan Problem List/Assessment/Plan 1. Non-STEMI Cardiac consult, obtain echo, trend troponin, monitor EKG 2. Hypertension Continue home meds 3. Dyslipidemia Start atorvastatin 10 mg 4. Acute cystitis without hematuria IV Rocephin Obesity Monitor Subjective: Objective: Patient was admitted for non-STEMI, patient was seen by Cardiology, still awaiting further recommendations. Patient was placed on heparin drip troponins did peak 1027 and are not trending down. Patient was placed on aspirin and atorvastatin 10. Plan: Awaiting further recommendations from Cardiology, monitor EKG, continue with IV Rocephin Plan discussed with: Patient My Orders My Orders Orders - ROZ SMITH Procedure Category Date Status Time Urine Bacterial ARLETTE 11/27/24 In Process Culture 07:13 * Cardiology Consult CONS 11/27/24 Transmitted 11:16 Echo 2d Mode Cardiac US 11/27/24 Resulted DOP 11:29 Aspirin Tablet PHA 11/28/24 Logged 10:00 Atorvastatin (Lipitor) PHA 11/27/24 Logged 22:00 Losartan Tablet PHA 11/27/24 Logged (Cozaar Tablet) 20:30 Losartan Tablet PHA 11/28/24 Logged (Cozaar Tablet) 10:00 Nifedipine Er PHA 11/28/24 Logged (Procardia Xl 10:00 Nifedipine Er PHA 11/27/24 Logged (Procardia Xl 20:30 Date of Service: Nov 27, 2024 Billing Provider: REG TRIANA MD Common Visit Codes: [id number] INP/OBS CARE (MOD) ROZ SMITH Nov 27, 2024 20:33
[2024-11-27] MEDS: LOSARTAN POTASSIUM 50 MG TAB PO ONE (21:00)
[2024-11-27] MEDS: NIFEdipine ER 30 MG TAB PO ONE (21:01)
[2024-11-27 21:46] VITALS: BP 149/94; PULSE 70; RESP 18; RESP 20; TEMP 98.2; O2SAT 98
[2024-11-28] VITALS (8 sets, daily range): BP systolic 101–137; BP diastolic 59–88; PULSE 66–76; RESP 15–19; TEMP 97.4–98; O2SAT 96–100
[2024-11-28] MEDS: ATORVASTATIN 20 MG TAB PO SCH (00:12)
[2024-11-28 07:28] LABS: Basophils # (auto) 0 10 ^3/uL (0-0.2); Basophils % (auto) 0.4 % (0.0-2.0); Eosinophils # (auto) 0.2 10 ^3/uL (0-0.8); Hematocrit 38.9 % (36.0-46.0); Hemoglobin 12.8 g/dL (12.2-16.2); Lymphocytes % (auto) 34.1 % (10.0-50.0); Mean Corpuscular Hemoglobin 31.2 pg (28.0-32.0); Mean Corpuscular Hgb Conc. 32.8 g/dL (32.0-36.0); Monocytes # (auto) 0.6 10 ^3/uL (0-1.3); Monocytes % (auto) 9.8 % (0.0-12.0); Neutrophils % (auto) 52.7 % (37.0-80.0); Nucleated Red Blood Cells % 0.1 %; Platelet Count (auto) 155 10^3/uL (140-450); Red Cell Distribution Width 15.3 % (11.8-14.3); White Blood Cell 5.8 10^3/uL (4.4-10.8)
[2024-11-28] MEDS: ASPirin 81 mg TAB PO SCH (09:28)
[2024-11-28] MEDS: NIFEdipine ER 30 MG TAB PO SCH (09:29)
[2024-11-28] MEDS: LOSARTAN POTASSIUM 50 MG TAB PO SCH (09:29)
[2024-11-28] MEDS: cefTRIAXone 1GM/50ML D5W 50 ML IV SCH (09:31)
[2024-11-28 13:21] LABS: INR 1.03 (0.9-1.15); Partial Thromboplastin Time 43.7 SEC (24.5-34.5); Prothrombin Time 10.9 sec (9.3-11.8)
--- NOTE | 2024-11-28 14:02 | DVHPN2 ---
Progress Note - Dictate Date Seen: Nov 28, 2024 Medical Necessity Reason Pt with a Central, PICC or Fol: No Subjective Patient seen and examined Overnight events reviewed vital signs Vital Sign Date Time Temp Pulse Resp B/P (MAP) Pulse Ox O2 Delivery O2 Flow Rate FiO2 11/28/24 09:29 108/71 11/28/24 09:00 98.0 76 16 96 98.0 11/28/24 08:00 Room Air* 0 21 Total Intake and Output 11/27/24 11/27/24 11/28/24 15:00 23:00 07:00 Intake Total 64 ml 520 ml 750 ml Balance 64 ml 520 ml 750 ml medications Current Medications Medications Dose Ordered Sig/Terrance Route Start Time Stop Time Status Last Admin Dose Admin Heparin Sodium/ Dextrose 250 ml @ 8 mls/hr Q24H IV 11/26/24 22:15 11/28/24 06:05 8 MLS/HR Sodium Chloride 1,000 ml @ 120 mls/hr Q8H20M IV 11/26/24 22:15 11/28/24 09:32 120 MLS/HR Acetaminophen/ Hydrocodone Bitart 1 tab Q4HP PRN PO 11/26/24 22:15 Ondansetron HCl 4 mg Q4HP PRN IV 11/26/24 22:15 Acetaminophen 650 mg Q6HP PRN PO 11/26/24 22:15 Morphine Sulfate 2 mg Q4HPRN PRN IV 11/26/24 22:15 Nitroglycerin 0.4 mg Q5MINP PRN SL 11/26/24 22:15 Morphine Sulfate 2 mg Q30M PRN IV 11/26/24 22:15 Aspirin 81 mg DAILY PO 11/28/24 10:00 11/28/24 09:28 81 MG Atorvastatin Calcium 10 mg HS PO 11/27/24 22:00 11/28/24 00:12 10 MG Losartan Potassium 50 mg DAILY PO 11/28/24 10:00 11/28/24 09:29 50 MG Nifedipine 30 mg DAILY PO 11/28/24 10:00 11/28/24 09:29 30 MG Ceftriaxone Sodium 50 ml @ 100 mls/hr DAILY@09 IV 11/28/24 09:00 11/28/24 09:31 100 MLS/HR laboratory and microbiology Laboratory Tests 11/28/24 05:00 11/27/24 04:45 Test 4/11/25 04:45 Range/Units Serum Glucose 103 74-106 mg/dL Assessment/Plan Impression Acute hypoxemic respiratory failure Elevated troponin Obesity NSTEMI Dyspnea Patient seen and examined Events Low oxygen requirements On room air No distress Labs and imaging reviewed Management Supplemental oxygen as needed Titrate to maintain sats 90% or above Incentive spirometry Continue antibiotics F/u cultures Bronchodilators Monitor renal function Monitor electrolytes Supplement as needed F/u cardiology DVT prophylaxis Plan discussed with: Patient TOAN MENDEZ MD Nov 28, 2024 14:02
--- NOTE | 2024-11-28 14:07 | DVHPN2 ---
[facility] 11/28/24 1406: Consult Progress Note Date Seen: Nov 28, 2024 Subjective Review of Systems: CVS:Normal, RESPIRATORY:Normal, NEURO:Normal Objective vital signs Vital Sign Date Time Temp Pulse Resp B/P (MAP) Pulse Ox O2 Delivery O2 Flow Rate FiO2 11/28/24 09:29 108/71 11/28/24 09:00 98.0 76 16 96 98.0 11/28/24 08:00 Room Air* 0 21 Total Intake and Output 11/27/24 11/27/24 11/28/24 15:00 23:00 07:00 Intake Total 64 ml 520 ml 750 ml Balance 64 ml 520 ml 750 ml medications Current Medications Medications Dose Ordered Sig/Terrance Route Start Time Stop Time Status Last Admin Dose Admin Heparin Sodium/ Dextrose 250 ml @ 8 mls/hr Q24H IV 11/26/24 22:15 11/28/24 06:05 8 MLS/HR Sodium Chloride 1,000 ml @ 120 mls/hr Q8H20M IV 11/26/24 22:15 11/28/24 09:32 120 MLS/HR Acetaminophen/ Hydrocodone Bitart 1 tab Q4HP PRN PO 11/26/24 22:15 Ondansetron HCl 4 mg Q4HP PRN IV 11/26/24 22:15 Acetaminophen 650 mg Q6HP PRN PO 11/26/24 22:15 Morphine Sulfate 2 mg Q4HPRN PRN IV 11/26/24 22:15 Nitroglycerin 0.4 mg Q5MINP PRN SL 11/26/24 22:15 Morphine Sulfate 2 mg Q30M PRN IV 11/26/24 22:15 Aspirin 81 mg DAILY PO 11/28/24 10:00 11/28/24 09:28 81 MG Atorvastatin Calcium 10 mg HS PO 11/27/24 22:00 11/28/24 00:12 10 MG Losartan Potassium 50 mg DAILY PO 11/28/24 10:00 11/28/24 09:29 50 MG Nifedipine 30 mg DAILY PO 11/28/24 10:00 11/28/24 09:29 30 MG Ceftriaxone Sodium 50 ml @ 100 mls/hr DAILY@09 IV 11/28/24 09:00 11/28/24 09:31 100 MLS/HR Examination: LUNGS:Normal, CVS:Normal, NEURO:Normal laboratory and microbiology Laboratory Tests 11/28/24 05:00 11/27/24 04:45 Test 11/27/24 04:45 Range/Units Serum Glucose 103 74-106 mg/dL Problem List/Assessment/Plan Problem List/Assessment/Plan NSTEMI Atrial tachycardia Hypertension Dyslipidemia Rule out acute CVA Urinary tract infection Obesity Plan/Recommendation (Dr. Tinajero) Case discussed with . Transthoracic echocardiogram reveals EF 65%. The patient presents to the emergency room with generalized weakness, palpitations, shortness of breath, and left arm paresthesia was found to have elevated troponin levels. She was initiated on a heparin drip while in the emergency room. Given new onset left arm paresthesia, a head CT was ordered and reveals no acute intracranial abnormality, with a right cerebellar encephalomalacia. Primary care team notified with brain MRI pending at this time. She is cardiac stable, denies active cardiac symptoms, no significant ST segment changes seen on twelve lead electrocardiogram. Likely NSTEMI Type II. Consider an outpatient event monitor if deemed necessary. There is no further cardiac work- up indicated at this time. Kindly call if in need to re-consult. Thank you for allowing us to care for this patient. This medical document was created using an electronic medical record system with voice recognition software and computerized dictation system. Although this document has been carefully reviewed, there might still be some phonetic and typographical errors. Occasional wrong-word or ``sound-alike substitutions may have occurred due to the inherent limitations of voice recognition software. These areas are purely typographical due to imperfections of the software programs and do not reflect any compromise in the patient's medical care. Please read the chart carefully and recognize, using context, where these substitutions have occurred. Plan discussed with: Patient, Other Date of Service: Nov 28, 2024 Billing Provider: GRACIE BAUMAN Cardiology Common Codes: [id number] INP/OBS CARE(Mod) [place] TINAJERO MD 11/28/24 1449: Consult Progress Note Problem List/Assessment/Plan Problem List/Assessment/Plan pt started on heparin gtt prior to use seeing pt, defer management to primary team regarding this, abnormal head ct, fu neuro eval , GRACIE BAUMAN Nov 28, 2024 14:06 [place] TINAJERO MD Nov 28, 2024 14:49
--- NOTE | 2024-11-28 14:11 | CONS ---
Pharmacy Clinical Information: INCREASE HEPARIN DRIP RATE TO 1000 UNITS/HR = 10 ML/HR PER APTT OF 43.7. NEXT APTT DRAW SCHEDULED FOR 1999 PER RX PROTOCOL. CIELO VANEGAS PHARMACIST Nov 28, 2024 14:11
[2024-11-28] MEDS: HEPARIN DRIP/D5W 100UNITS/ML 250 ML IV SCH (14:45)
--- NOTE | 2024-11-28 16:10 | DVH ---
MRI BRAIN HEAD WO CONTRAST INDICATION: r.o bleed : 64 old Female r.o bleed EXAM DATE: 11/28/2024 03:19 PM COMPARISON: 11/27/24 PROCEDURE: Using a 1.5 Marlyn scanner, multisequence multiplanar imaging of the brain was obtained. FINDINGS: Right cerebellar encephalomalacia likely from old infarct. The brain otherwise shows normal morphology and signal characteristics. No abnormal T2 hyperintensity, diffusion restriction, or susc eptibility hypointensity is present. The ventricles are normal in size. The midline structures are in tact. The major intracranial flow voids are present. The aerated spaces are normal. The orbital rishabh nts and extracranial soft tissues appear normal. IMPRESSION: Right cerebellar encephalomalacia likely from old infarct. No acute abnormal MRI findings of the brain. No evidence for hemorrhage seen.
--- NOTE | 2024-11-28 19:26 | DVHPN2 ---
Progress Note Date Seen: Nov 28, 2024 Medical Necessity Reason Pt with a Central, PICC or Fol: No Subjective Review of Systems: CVS:Normal, RESPIRATORY:Normal, GI:Normal, NEURO:Normal Objective vital signs Vital Sign Date Time Temp Pulse Resp B/P (MAP) Pulse Ox O2 Delivery O2 Flow Rate FiO2 11/28/24 17:00 97.7 66 15 121/88 (99) 97 97.7 11/28/24 08:00 Room Air* 0 21 Total Intake and Output 11/27/24 11/27/24 11/28/24 15:00 23:00 07:00 Intake Total 64 ml 520 ml 750 ml Balance 64 ml 520 ml 750 ml medications Current Medications Medications Dose Ordered Sig/Terrance Route Start Time Stop Time Status Last Admin Dose Admin Sodium Chloride 1,000 ml @ 120 mls/hr Q8H20M IV 11/26/24 22:15 11/28/24 09:32 120 MLS/HR Acetaminophen/ Hydrocodone Bitart 1 tab Q4HP PRN PO 11/26/24 22:15 Ondansetron HCl 4 mg Q4HP PRN IV 11/26/24 22:15 Acetaminophen 650 mg Q6HP PRN PO 11/26/24 22:15 Morphine Sulfate 2 mg Q4HPRN PRN IV 11/26/24 22:15 Nitroglycerin 0.4 mg Q5MINP PRN SL 11/26/24 22:15 Morphine Sulfate 2 mg Q30M PRN IV 11/26/24 22:15 Aspirin 81 mg DAILY PO 11/28/24 10:00 11/28/24 09:28 81 MG Atorvastatin Calcium 10 mg HS PO 11/27/24 22:00 11/28/24 00:12 10 MG Losartan Potassium 50 mg DAILY PO 11/28/24 10:00 11/28/24 09:29 50 MG Nifedipine 30 mg DAILY PO 11/28/24 10:00 11/28/24 09:29 30 MG Ceftriaxone Sodium 50 ml @ 100 mls/hr DAILY@09 IV 11/28/24 09:00 11/28/24 09:31 100 MLS/HR Examination: GENERAL:Normal, LUNGS:Normal, CVS:Normal, ABDOMEN:Normal, SKIN:Normal, NEURO:Normal laboratory and microbiology Laboratory Tests 11/28/24 05:00 11/27/24 04:45 Test 11/27/24 04:45 Range/Units Serum Glucose 103 74-106 mg/dL Microbiology Date/Time Source Procedure Growth Status 11/26/24 21:14 Urine - Midstream Clean Catch Urine Culture - Preliminary Resulted Labs and/or images reviewed: Image(s) reviewed by me Problem List/Assessment/Plan Problem List/Assessment/Plan 1. Non-STEMI Cardiac consult, obtain echo, trend troponin, monitor EKG 2. Hypertension Continue home meds 3. Dyslipidemia Start atorvastatin 10 mg 4. Acute cystitis without hematuria IV Rocephin Obesity Monitor Subjective: Objective: Patient was admitted for non-STEMI. Patient was placed on heparin drip troponins did peak 1027 and are not trending down. Heparin drip has been stopped. Patient had MRI of brain done which showed encephalomalacia, per Cardiology wants to obtain Neurology clearance prior to proceeding. D-dimer was found to be elevated we will obtain CTA chest to rule out PE, and venous Doppler to rule out DVT Patient was placed on aspirin and atorvastatin 10. Plan: Awaiting further recommendations from Cardiology, monitor EKG, continue with IV Rocephin, obtain CTA chest, obtain venous Doppler, obtain Neurology clearance Plan discussed with: Patient My Orders My Orders Orders - ROZ SMITH Procedure Category Date Status Time Aspirin Tablet PHA 11/28/24 In Process 10:00 Atorvastatin (Lipitor) PHA 11/27/24 In Process 22:00 Losartan Tablet PHA 11/28/24 In Process (Cozaar Tablet) 10:00 Nifedipine Er PHA 11/28/24 In Process (Procardia Xl 10:00 Ceftriaxone 1gm/50ml PHA 11/28/24 In Process D5w (Rocephin) 09:00 Brain Head Wo Contrast MRI 11/28/24 Resulted 11:38 *Cons[address] Dr[address] Morales CONS 11/28/24 Transmitted Henry 11:38 Communication Order ORDERS 11/28/24 Transmitted 13:[address] 11/28/24 Verified Contrast 19:21 Bilat Lower Dvt US 11/28/24 Verified 19:21 Date of Service: Nov 28, 2024 Billing Provider: REG TRIANA MD Common Visit Codes: [id number] INP/OBS CARE (MOD) ROZ SMITH Nov 28, 2024 19:26
--- NOTE | 2024-11-28 20:29 | DVH ---
EXAM: US BILAT LOWER DVT Clinical History: r.o dvt Comparison: None Technique: Duplex Doppler evaluation of the deep venous systems of both lower extremities from the common femora l veins to the popliteal veins including color Doppler and spectral/pulsed waveform analysis was perf ormed. Findings: No visible intraluminal venous thrombus. No evidence of incompressibility or abnormal color or spectr al Doppler flow visualized in the deep bilateral lower extremity veins. Proximal greater saphenous ve ins are grossly unremarkable. Impression: 1. No sonographic evidence of deep venous thrombosis throughout the bilateral lower extremities from the popliteal veins to the common femoral veins.
[2024-11-28 20:37] LABS: INR 1.03 (0.9-1.15); Partial Thromboplastin Time 50.1 SEC (24.5-34.5); Prothrombin Time 10.9 sec (9.3-11.8)
[2024-11-29] VITALS (7 sets, daily range): BP systolic 102–130; BP diastolic 64–78; PULSE 55–70; RESP 16–18; TEMP 97.2–98.1; O2SAT 95–100
[2024-11-29 07:26] LABS: Basophils # (auto) 0 10 ^3/uL (0-0.2); Basophils % (auto) 0.3 % (0.0-2.0); Eosinophils # (auto) 0.2 10 ^3/uL (0-0.8); Eosinophils % (auto) 3.1 % (0.0-7.0); Hematocrit 42.6 % (36.0-46.0); Hemoglobin 13.8 g/dL (12.2-16.2); Lymphocytes % (auto) 35.2 % (10.0-50.0); Mean Corpuscular Hemoglobin 31.1 pg (28.0-32.0); Mean Corpuscular Hgb Conc. 32.5 g/dL (32.0-36.0); Mean Corpuscular Volume 95.7 fL (80.0-100.0); Monocytes # (auto) 0.6 10 ^3/uL (0-1.3); Monocytes % (auto) 10.4 % (0.0-12.0); Neutrophils # (auto) 2.9 10 ^3/uL (1.6-8.6); Nucleated Red Blood Cells % 0.1 %; Platelet Count (auto) 157 10^3/uL (140-450); Red Blood Cells 4.45 10^6/uL (4.0-5.20); Red Cell Distribution Width 15.5 % (11.8-14.3); White Blood Cell 5.8 10^3/uL (4.4-10.8)
[2024-11-29] MEDS ORDERED: IOHEXOL 350 MG/ML 100ML IJ ONE (12:10)
--- NOTE | 2024-11-29 13:34 | DVH ---
EXAM: CT CT ANGIO CHEST CONTRAST History: r.o pe Comparison Study: None available TECHNIQUE: A digital hogshead dumper image was obtained. During the uneventful, intravenous administration of c ontrast material, multislice data acquisition was obtained through the chest. 3-D postprocessing is performed by technologist including MIP imaging Radiation Dose : CTDI vol 13.53 mGy, DLP 445.16 mGy*cm. Findings: Lungs: The lungs are clear. Pleura: Unremarkable Heart/Great vessels: No cardiomegaly or pericardial effusion. No pulmonary embolism, aneurysm, or dis section. Mediastinum: Unremarkable Soft tissues/Bones: Mild to moderate multilevel degenerative changes of the thoracic spine. 1.2 cm left adrenal nodule. The partially visualized upper abdomen is within normal limits. Impression: 1. No evidence of a pulmonary embolism, aneurysm, or dissection. 2. 1.2 cm left adrenal nodule. Consider further evaluation with an adrenal protocol CT as clinically indicated.
[2024-11-29 14:00] LABS: INR 1.03 (0.9-1.15); Partial Thromboplastin Time 36.8 SEC (24.5-34.5); Prothrombin Time 10.9 sec (9.3-11.8)
--- NOTE | 2024-11-29 14:06 | DVHPN2 ---
Progress Note - Dictate Date Seen: Nov 29, 2024 Medical Necessity Reason Pt with a Central, PICC or Fol: No Subjective Patient seen and examined Overnight events reviewed vital signs Vital Sign Date Time Temp Pulse Resp B/P (MAP) Pulse Ox O2 Delivery O2 Flow Rate FiO2 11/29/24 09:00 98.1 55 17 130/76 (94) 97 98.1 11/29/24 08:00 Room Air* 0 21 Total Intake and Output 11/28/24 11/28/24 11/29/24 15:00 23:00 07:00 Intake Total 50 ml 1520 ml 800 ml Balance 50 ml 1520 ml 800 ml medications Current Medications Medications Dose Ordered Sig/Terrance Route Start Time Stop Time Status Last Admin Dose Admin Sodium Chloride 1,000 ml @ 120 mls/hr Q8H20M IV 11/26/24 22:15 11/29/24 08:31 120 MLS/HR Acetaminophen/ Hydrocodone Bitart 1 tab Q4HP PRN PO 11/26/24 22:15 Ondansetron HCl 4 mg Q4HP PRN IV 11/26/24 22:15 Acetaminophen 650 mg Q6HP PRN PO 11/26/24 22:15 Morphine Sulfate 2 mg Q4HPRN PRN IV 11/26/24 22:15 Nitroglycerin 0.4 mg Q5MINP PRN SL 11/26/24 22:15 Morphine Sulfate 2 mg Q30M PRN IV 11/26/24 22:15 Aspirin 81 mg DAILY PO 11/28/24 10:00 11/29/24 08:29 81 MG Atorvastatin Calcium 10 mg HS PO 11/27/24 22:00 11/28/24 21:25 10 MG Losartan Potassium 50 mg DAILY PO 11/28/24 10:00 11/29/24 08:30 50 MG Nifedipine 30 mg DAILY PO 11/28/24 10:00 11/29/24 08:30 30 MG Ceftriaxone Sodium 50 ml @ 100 mls/hr DAILY@09 IV 11/28/24 09:00 11/29/24 08:29 100 MLS/HR laboratory and microbiology Laboratory Tests 11/29/24 06:14 11/27/24 04:45 Test 11/27/24 04:45 Range/Units Serum Glucose 103 74-106 mg/dL Assessment/Plan Impression Acute hypoxemic respiratory failure Elevated troponin Obesity NSTEMI Dyspnea Patient seen and examined Events Low oxygen requirements On room air No distress Labs and imaging reviewed Management Supplemental oxygen as needed Titrate to maintain sats 90% or above Incentive spirometry Continue antibiotics F/u cultures Bronchodilators Monitor renal function Monitor electrolytes Supplement as needed F/u cardiology DVT prophylaxis Plan discussed with: Other (pt) TOAN MENDEZ MD Nov 29, 2024 14:06
--- NOTE | 2024-11-29 16:01 | BSKYNEURO ---
[facility] Neuro Note # Demographics Consult Type: General Neurology Patient Location: Inpatient First Name: Leticia Last Name: Giovanny Date of : 1960 Age: 64 Gender: Female Facility: [facility] Time of Initial Page (): 11/29/2024 15:27 Time of Return Call (): 11/29/2024 15:28 Phone Agreement: - phone consult deemed mutually sufficient for patient care # HPI History: 64 y/o F who admitted for SOB, LUE numbness, palpitations and found to have NSTEMI. MRI shows chronic encephalomalacia in R cerebellum # Data Time Head CT personally read by me ( Time): 11/29/2024 15:55 MRI: - no acute ischemia - preliminarily reviewed by me, please refer to radiology read for official reading chronic R cerebellar stroke # Assessment Impression: Chronic cerebellar stroke. There is no neurologic contraindication for left hea rt cath/anticoagulation. Chronic strokes have minimal risk of hemorrhagic conversion # Plan Other: - If patient has any neurological deterioration please call me back immediately # Logistics Attestation of consult completion: The patient is located at: [facility]. I performed this phone consultation from my offsite office Total time spent in telemedicine encounter: I spent 5 minutes in reviewing clinical data and/or imaging, obtaining history, communicating with the onsite care team, and in preparation of this report. # Demographics First Name: Leticia Last Name: Giovanny Facility: [facility] Yes HANH PERSON MD Nov 29, 2024 16:01
[2024-11-29] MEDS ORDERED: ASPI-325 PO (17:22)
[2024-11-29] MEDS ORDERED: NIFE1TAB31 PO (17:22)
[2024-11-29] MEDS ORDERED: CARV3.1240 PO (17:22)
[2024-11-29] MEDS ORDERED: ATOR20TA50 PO (17:22)
[2024-11-29] MEDS ORDERED: LOSA-534 PO (17:22)
--- NOTE | 2024-11-29 19:01 | DVHDS2 ---
Discharge Summary Date of Admission Nov 26, 2024 at 22:10 Date of Discharge: Nov 29, 2024 Labs/Diagnostic Data: Laboratory Results Test 11/29/24 13:11 11/29/24 06:14 11/28/24 17:26 11/27/24 10:14 Prothrombin Time 10.9 sec (9.3-11.8) Prothrombin Time INR 1.03 (0.9-1.15) Activated Partial Thromboplast Time 36.8 SEC (24.5-34.5) White Blood Count 5.8 10^3/uL (4.4-10.8) Red Blood Count 4.45 10^6/uL (4.0-5.20) Hemoglobin 13.8 g/dL (12.2-16.2) Hematocrit 42.6 % (36.0-46.0) Mean Corpuscular Volume 95.7 fL (80.0-100.0) Mean Corpuscular Hemoglobin 31.1 pg (28.0-32.0) Mean Corpuscular Hemoglobin Concent 32.5 g/dL (32.0-36.0) Red Cell Distribution Width 15.5 % (11.8-14.3) Platelet Count 157 10^3/uL (140-450) Mean Platelet Volume 10.2 fL (6.9-10.8) Neutrophils (%) (Auto) 51.0 % (37.0-80.0) Lymphocytes (%) (Auto) 35.2 % (10.0-50.0) Monocytes (%) (Auto) 10.4 % (0.0-12.0) Eosinophils (%) (Auto) 3.1 % (0.0-7.0) Basophils (%) (Auto) 0.3 % (0.0-2.0) Neutrophils # (Auto) 2.9 10 ^3/uL (1.6-8.6) Lymphocytes # (Auto) 2.0 10 ^3/uL (0.4-5.4) Monocytes # (Auto) 0.6 10 ^3/uL (0-1.3) Eosinophils # (Auto) 0.2 10 ^3/uL (0-0.8) Basophils # (Auto) 0 10 ^3/uL (0-0.2) Nucleated Red Blood Cells 0.1 % D-Dimer, Quantitative 0.96 mg/L FEU (0.0-0.49) Hemoglobin A1c 5.8 % A1C (<5.7) Troponin I High Sensitivity 783 ng/L (</=34) Test 11/27/24 08:35 11/27/24 04:45 11/26/24 22:36 11/26/24 21:14 Triglycerides Level 113 mg/dL (< 150) Cholesterol Level 184 mg/dL (< 200) LDL Cholesterol 124 mg/dL (< 100) HDL Cholesterol 36 mg/dL (40-59) Sodium Level 143 mmol/L (136-145) Potassium Level 3.9 mmol/L (3.5-5.1) Chloride Level 110 mmol/L (98-107) Carbon Dioxide Level 25 mmol/L (20-31) Anion Gap 8 (5-15) Blood Urea Nitrogen 13 mg/dL (9-23) Creatinine 0.74 mg/dL (0.550-1.02) Glomerular Filtration Rate Calc 91 mL/min (>90) BUN/Creatinine Ratio 17.6 (10.0-20.0) Serum Glucose 103 mg/dL (74-106) Calcium Level 8.9 mg/dL (8.7-10.4) Total Bilirubin 0.6 mg/dL (0.2-1.0) Aspartate Amino Transferase (AST) 25 U/L (13-40) Alanine Aminotransferase (ALT) 51 U/L (7-40) Alkaline Phosphatase 55 U/L (46-116) Total Protein 6.2 g/dL (5.7-8.2) Albumin 3.7 g/dL (3.2-4.8) Lactic Acid Level 1.3 mmol/L (0.4-2.0) Urine Color Light-yellow (Yellow) Urine Clarity Turbid (Clear) Urine pH 7.5 (5.0-9.0) Urine Specific Currie 1.017 (1.001-1.035) Urine Protein Negative (Negative) Urine Ketones Negative (Negative) Urine Blood Negative /uL (Negative) Urine Nitrite Negative (Negative) Urine Bilirubin Negative (Negative) Urine Urobilinogen Normal mg/dL (Negative) Urine Leukocyte Esterase 1+ /uL (Negative) Urine RBC 1 /hpf (0 - 4) Urine Microscopic WBC 4 /HPF (0-5) Urine Squamous Epithelial Cells Few /hpf (<5) Urine Amorphous Crystals Few /hpf (None Seen) Urine Bacteria Few /hpf (None Seen) Urine Glucose Normal mg/dL (Normal) Urine Opiates Screen Neg (NEGATIVE) Urine Fentanyl Screen Neg (NEGATIVE) Urine Barbiturates Screen Neg (NEGATIVE) Urine Phencyclidine Screen Neg (NEGATIVE) Urine Amphetamines Screen Neg (NEGATIVE) Urine Benzodiazepines Screen Neg (NEGATIVE) Urine Cocaine Screen Neg (NEGATIVE) Urine Cannabinoids Screen Neg (NEGATIVE) Test 11/26/24 19:45 Magnesium Level 2.2 mg/dL (1.6-2.6) B-Type Natriuretic Peptide 98.75 pg/mL (0-100) Thyroid Stimulating Hormone (TSH) 0.97 uIU/mL (0.55-4.78) Other Laboratory Tests 11/29/24 06:14 11/27/24 04:45 Brief Hx & Hospital Course: Patient was admitted for non-STEMI type 2 as per deep fat fry cook. Troponins peaked 1027, patient was placed on heparin drip and troponins did end up trending down. Patient was seen by deep fat fry cook who had requested clearance per anticoagulation from Neurology due to encephalomalacia, patient was seen by tele neurologist who cleared patient for anticoagulation. However when discussing case with Dr. Ramirez deep fat fry cook, patient is able to be followed up as outpatient and gave clearance for patient to be discharged home. Patient was sent home on aspirin 81 mg, atorvastatin 10 mg, carvedilol 3.125 b.i.d., losartan 15, Procardia 30. As such patient was sent home on guideline medical therapy Ms. To also follow up with PCP within one week of discharge Condition at Discharge: Fair Final Diagnosis/Problems List 1. Non-STEMI likley type 2 2. Hypertension 3. Dyslipidemia Start atorvastatin 10 mg 4. Acute cystitis without hematuria Obesity Discharge Disposition: Home Discharge Instruct/Medications Diet: Cardiac 2g Na,low cholest Activity: No Restrictions, As Tolerated Follow Up/Referral: PCP within 1 week Discharge Statement: "Patient was advised to return to the ER or call 911 if any headaches, dizziness, shortness of breath, chest pain, abdominal pain, bleeding, fevers, or worsening of medical condition. Patient was counseled about treatment plan, medications, possible side effects, patientverbalized understanding. All questions were answered to the best of my ability. This discharge took greater then 30 minutes in planning, reviewing documentation, counseling the patient, and discussing with other team members." ASSESSMENT ASSESSMENT Assessment 1. Non-STEMI likley type 2 2. Hypertension 3. Dyslipidemia Start atorvastatin 10 mg 4. Acute cystitis without hematuria Obesity ROZ SMITH Nov 29, 2024 19:01
== END 2024-11-29 20:15 | disposition home or self-care (01) | DRG 280 ==
LOC: ER 18:04 → OVERFLOW 22:10 → TELE-WESTW 11-27 21:42
PROVIDERS: ADMIT Nurse Practitioner; ATTEND Nurse Practitioner
DX: I47.19 Other supraventricular tachycardia (principal); J96.01 Acute respiratory failure with hypoxia; I21.A1 Myocardial infarction type 2; N30.00 Acute cystitis without hematuria; I10 Essential (primary) hypertension; E78.5 Hyperlipidemia, unspecified; D25.9 Leiomyoma of uterus, unspecified; I95.9 Hypotension, unspecified; E66.9 Obesity, unspecified; G93.89 Other specified disorders of brain; E11.9 Type 2 diabetes mellitus without complications; Z90.710 Acquired absence of both cervix and uterus; Z68.29 Body mass index [BMI] 29.0-29.9, adult
CPT/HCPCS: 36415; 70450; 70551; 71045; 71275; 80053; 80061; 80307; 81001; 83036; 83605; 83735; 83880; 84443; 84484; 85025; 85379; 85610; 85730; 87086; 93005; 93306; 93970; 96361; 96365; 99291; G0378